=== PATIENT | female | born 1995 | race Caucasian/White ===

== ENCOUNTER 2019-01-12 10:06 | Inpatient (IN) | payer MEDICARE, OTHER ==
[~2019-01-12] VITALS: Ht 172.7 cm; Wt 105.0 kg
[2019-01-12] MEDS ORDERED: NEWBORN KIT ONE (10:41)
[2019-01-12] MEDS ORDERED: SODIUM CITRATE/CITRIC ACID 15 ML UDC ONE (10:41)
[2019-01-12] MEDS ORDERED: METOCLOPRAMIDE 5 MG/ML, 2ML ONE (10:41)
[2019-01-12] MEDS ORDERED: OXYTOCIN 30U/ 0.9% NaCL 500ML 500 ML ONE (10:41)
[2019-01-12] MEDS ORDERED: METOCLOPRAMIDE 5 MG/ML, 2ML IV ONE (11:00)
[2019-01-12] MEDS ORDERED: ONDANSETRON 2MG/ML, 2ML IVPush ONE (11:00)
[2019-01-12] MEDS ORDERED: SODIUM CITRATE/CITRIC ACID 15 ML UDC PO ONE (11:00)
[2019-01-12] MEDS ORDERED: LACTATED RINGERS 1,000 ML IVBOLUS ONE (11:00)
[2019-01-12 11:03] LABS: BASOPHILS # (AUTO) 0.03 x10^3/uL (0-0.1); BASOPHILS % (AUTO) 1 % (0-1); EOSINOPHILS # (AUTO) 0.08 x10^3/uL (0-0.4); EOSINOPHILS % (AUTO) 1 % (1-7); LYMPHOCYTES # (AUTO) 1.23 x10^3/uL (1-3.4); LYMPHOCYTES % (AUTO) 19 % (22-44); MD NO; MEAN CORPUSCULAR HEMOGLOBIN 32.6 pg (27.0-34.8); MEAN CORPUSCULAR VOLUME 95.9 fL (80-100); MEAN PLATELET VOLUME 9.9 fL (7.4-10.4); MONOCYTES # (AUTO) 0.39 x10^3/uL (0.2-0.8); MONOCYTES % (AUTO) 6 % (2-9); NEUTROPHILS # (AUTO) 4.66 x10^3/uL (1.8-6.8); NEUTROPHILS % (AUTO) 73 % (42-75); PLATELET COUNT 128 x10^3/uL (130-400); RED BLOOD COUNT 3.23 x10^6/uL (3.82-5.3); RED CELL DISTRIBUTION WIDTH 12.9 % (9.6-15.2)
[2019-01-12 11:15] LABS: ALANINE AMINOTRANSFERASE 19 U/L (12-78); ALBUMIN 2.4 g/dL (3.4-5.0); ANION GAP 7 mmol/L (5-15); CALCIUM 8.1 mg/dL (8.5-10.1); CHLORIDE 112 mmol/L (98-107); CREATININE 0.71 mg/dL (0.55-1.02)
[2019-01-12 11:17] LABS: ALKALINE PHOSPHATASE 152 U/L (45-117); BILIRUBIN,TOTAL 0.6 mg/dL (0.2-1.0)
[2019-01-12] MEDS ORDERED: D5%-LACTATED RINGERS 1,000 ML IV PRN (11:30)
[2019-01-12] MEDS ORDERED: PLEASE ENTER ALLERGIES MC SCH (11:30)
[2019-01-12] MEDS: LACTATED RINGERS 1,000 ML IV SCH ×4 (13:37→23:37)
[2019-01-12] MEDS ORDERED: ONDANSETRON 2MG/ML, 2ML ONE (13:45)
[2019-01-12] MEDS ORDERED: MEPERIDINE/PF 50 MG/ML ONE (13:45)
[2019-01-12] MEDS ORDERED: MORPHINE SULFATE 4 MG/ML, 1ML IVPush PRN (14:00)
[2019-01-12] MEDS ORDERED: IBUPROFEN 800 MG TABLET PO PRN (14:00)
[2019-01-12] MEDS ORDERED: ACETAMINOPHEN 325 MG TABLET PO PRN (14:00)
[2019-01-12] MEDS ORDERED: MEPERIDINE/PF 25MG/0.5ML IVPush PRN (14:00)
[2019-01-12] MEDS ORDERED: ONDANSETRON 2MG/ML, 2ML IV PRN (14:00)
[2019-01-12] MEDS ORDERED: GLYCERIN ADULT SUPP PR PRN (14:00)
[2019-01-12] MEDS ORDERED: METOCLOPRAMIDE 5 MG/ML, 2ML IV PRN (14:00)
[2019-01-12] MEDS ORDERED: MISOPROSTOL 200 MCG TABLET PR PRN (14:00)
[2019-01-12] MEDS ORDERED: CARBOPROST TROMETHAMINE 250 MCG/ML, 1ML IM PRN (14:00)
[2019-01-12] MEDS ORDERED: BISACODYL 10 MG SUPP PR PRN (14:00)
[2019-01-12] MEDS ORDERED: OXYcodone 5 MG/5 ML ORAL.SOL UDC ONE ×2 (14:12→14:56)
[2019-01-12] MEDS: OXYcodone 5 MG/5 ML ORAL.SOL UDC PO PRN ×3 (14:14→19:20)
[2019-01-12] MEDS ORDERED: FENTANYL PF 100 MCG/2ML ONE ×2 (14:56→15:17)
[2019-01-12] MEDS: FENTANYL PF 100 MCG/2ML IV PRN ×2 (14:58→15:19)
[2019-01-12] MEDS: OXYTOCIN 30U/ 0.9% NaCL 500ML 500 ML IV SCH ×2 (15:03→23:37)
[2019-01-12 15:30] VITALS: BP 134/77
[2019-01-12] MEDS: KETOROLAC 30 MG/1 ML IV SCH ×2 (17:40→23:57)
[2019-01-12] MEDS: DOCUSATE 100 MG CAPSULE PO PRN (19:20)
[2019-01-12 20:00] VITALS: BP 138/80
[2019-01-13] VITALS: BP 117/73
[2019-01-13] MEDS: OXYcodone 5 MG/5 ML ORAL.SOL UDC PO PRN (00:26)
[2019-01-13] MEDS: LACTATED RINGERS 1,000 ML IV SCH ×5 (01:34→21:37)
[2019-01-13 04:00] VITALS: BP 116/76
[2019-01-13] MEDS: OXYcodone/APAP 5/325MG TABLET PO PRN ×5 (04:26→21:30)
[2019-01-13 05:35] LABS: BASOPHILS # (AUTO) 0.01 x10^3/uL (0-0.1); BASOPHILS % (AUTO) 0 % (0-1); EOSINOPHILS # (AUTO) 0.11 x10^3/uL (0-0.4); EOSINOPHILS % (AUTO) 1 % (1-7); LYMPHOCYTES # (AUTO) 1.61 x10^3/uL (1-3.4); LYMPHOCYTES % (AUTO) 20 % (22-44); MD NO; MEAN CORPUSCULAR HEMOGLOBIN 33.4 pg (27.0-34.8); MEAN CORPUSCULAR HGB CONC 34.3 g/dL (32.4-35.8); MEAN CORPUSCULAR VOLUME 97.4 fL (80-100); MEAN PLATELET VOLUME 9.7 fL (7.4-10.4); MONOCYTES # (AUTO) 0.51 x10^3/uL (0.2-0.8); MONOCYTES % (AUTO) 6 % (2-9); NEUTROPHILS # (AUTO) 5.77 x10^3/uL (1.8-6.8); NEUTROPHILS % (AUTO) 72 % (42-75); PLATELET COUNT 116 x10^3/uL (130-400); RED BLOOD COUNT 2.38 x10^6/uL (3.82-5.3); RED CELL DISTRIBUTION WIDTH 13.4 % (9.6-15.2)
[2019-01-13] MEDS: KETOROLAC 30 MG/1 ML IV SCH ×3 (06:15→18:25)
[2019-01-13 06:50] VITALS: BP 130/79
[2019-01-13] MEDS: DOCUSATE 100 MG CAPSULE PO PRN ×2 (08:33→21:29)
[2019-01-13] MEDS: PRENATAL VIT/IRON/FA 1 EACH TABLET PO SCH (08:33)
[2019-01-13] MEDS: OXYTOCIN 30U/ 0.9% NaCL 500ML 500 ML IV SCH ×2 (09:37→19:37)
[2019-01-13 11:45] VITALS: BP 116/74
[2019-01-13 17:00] VITALS: BP 120/76
[2019-01-13 20:25] VITALS: BP 136/83
[2019-01-14] MEDS: KETOROLAC 30 MG/1 ML IV SCH ×3 (00:33→12:41)
[2019-01-14] MEDS: OXYcodone/APAP 5/325MG TABLET PO PRN ×6 (02:31→22:26)
[2019-01-14] MEDS: OXYTOCIN 30U/ 0.9% NaCL 500ML 500 ML IV SCH (05:37)
[2019-01-14] MEDS: LACTATED RINGERS 1,000 ML IV SCH ×2 (05:37)
[2019-01-14] MEDS: SIMETHICONE 80 MG CHEW TAB PO PRN ×2 (06:36→14:32)
[2019-01-14] MEDS: PRENATAL VIT/IRON/FA 1 EACH TABLET PO SCH (09:20)
[2019-01-14] MEDS: DOCUSATE 100 MG CAPSULE PO PRN ×2 (09:20→22:26)
[2019-01-14] MEDS: FERROUS SULFATE 325 MG TABLET PO SCH (09:21)
[2019-01-14] MEDS ORDERED: KETOROLAC 30 MG/1 ML ONE (12:39)
[2019-01-14] MEDS: IBUPROFEN 600 MG TABLET PO PRN (18:17)
[2019-01-14 20:10] VITALS: BP 128/85
[2019-01-15] MEDS: IBUPROFEN 600 MG TABLET PO PRN ×4 (00:24→19:44)
[2019-01-15] MEDS: OXYcodone/APAP 5/325MG TABLET PO PRN ×5 (02:33→19:44)
[2019-01-15] MEDS: SIMETHICONE 80 MG CHEW TAB PO PRN ×4 (02:33→19:44)
[2019-01-15 07:57] VITALS: BP 137/87
[2019-01-15] MEDS: DOCUSATE 100 MG CAPSULE PO PRN (07:58)
[2019-01-15] MEDS: PRENATAL VIT/IRON/FA 1 EACH TABLET PO SCH (07:58)
[2019-01-15] MEDS: FERROUS SULFATE 325 MG TABLET PO SCH (07:58)
[2019-01-15] MEDS ORDERED: IBUP-1222 PO (08:49)
[2019-01-15] MEDS ORDERED: OXYC-302 PO (08:49)
[2019-01-15] MEDS ORDERED: FERR325T23 PO (08:50)
[2019-01-15 20:00] VITALS: BP 147/85
[2019-01-16] MEDS: OXYcodone/APAP 5/325MG TABLET PO PRN ×4 (00:39→14:07)
[2019-01-16] MEDS: SIMETHICONE 80 MG CHEW TAB PO PRN ×2 (03:35→09:54)
[2019-01-16] MEDS: FERROUS SULFATE 325 MG TABLET PO SCH (09:54)
[2019-01-16] MEDS: PRENATAL VIT/IRON/FA 1 EACH TABLET PO SCH (09:54)
[2019-01-16] MEDS: DOCUSATE 100 MG CAPSULE PO PRN (09:54)
[2019-01-16 10:12] VITALS: BP 132/78
[2019-01-16] MEDS: IBUPROFEN 600 MG TABLET PO PRN (14:07)
== END 2019-01-16 14:30 | disposition home or self-care (01) | DRG 786 ==
LOC: LDIP 10:06 → 2NW 15:36
PROVIDERS: ADMIT Student in an Organized Health Care Education/Training Program; ATTEND Student in an Organized Health Care Education/Training Program
PROC: 10D00Z1 Extraction of Products of Conception, Low, Open Approach (ICD-10-PCS; principal; 2019-01-12)
DX: O32.1XX0 Maternal care for breech presentation, not applicable or unspecified (principal); O24.02 Pre-existing type 1 diabetes mellitus, in childbirth; D62 Acute posthemorrhagic anemia; O99.355 Diseases of the nervous system complicating the puerperium; O36.63X0 Maternal care for excessive fetal growth, third trimester, not applicable or unspecified; O40.3XX0 Polyhydramnios, third trimester, not applicable or unspecified; Z37.0 Single live birth; O90.81 Anemia of the puerperium; G89.18 Other acute postprocedural pain; O99.52 Diseases of the respiratory system complicating childbirth; E10.9 Type 1 diabetes mellitus without complications; J45.909 Unspecified asthma, uncomplicated; Z3A.38 38 weeks gestation of pregnancy
CPT/HCPCS: 36415; 80053; 82570; 82803; 84156; 84550; 85025; 86850; 86900; G0378; J1885; J2175; J2405; J3010; J2590; J2765; J7120